=== PATIENT | female | born 1970 | race Two or more races ===

== ENCOUNTER → 2016-10-04 | Outpatient (CLI) | payer OTHER ==
--- NOTE | ~2016-10-04 | MY11 ---
[facility] A Service of [facility] & [facility] RADIOLOGY TEXT RESULTS PATIENT: ADRI IBRAHIM LOCATION: [facility] : 72 UNIT #: [id number] AGE: [address]: SP MAY APRN SEX: F ORDER DR: [id number] [facility] [address] [place], [place] [address] [id number] O MR#: [id number] Acc #: [id number] NAME: ADRI IBRAHIM : 1970 SEX: F STUDY DATE/TIME: 10/04/2016 13:26 UNIT: [facility] ROOM: STUDY DESCRIPTION: MY Mammogram Screening Dig Jerry Attending Physician: Juan Carlos May Aprn Referring Physician: Juan Carlos May Aprn Ordering Physician: Juan Carlos May Aprn Primary Care Physician: Juan Carlos May Aprn MEDICAL IMAGING REPORT This report is preliminary unless electronic signature is present EXAM Digital screening mammogram, 10/04/2016, [facility]. HISTORY 45-year-old woman no risk elevation. Annual screen. COMPARISON STUDIES Mammograms [facility] date 05/19/2015. TECHNIQUE Digital imaging of each breast was completed utilizing screening protocol. Review includes FDA-approved CAD device. FINDINGS Breast parenchyma is moderately dense with bilateral fibroglandular opacities again noted. There is no dominant mass. I see no suspicious microcalcifications and no focal architectural deformity. IMPRESSION Negative mammogram. Annual screening recommended. Patients over the age of 40 are entered into a reminder system with target due date for the next mammogram. A result letter will also be sent to the patient. BIRADS: 1 Negative Dictated by... Juno Kimbrough M.D. THIS IS AN ELECTRONICALLY VERIFIED REPORT [facility] A Service of [facility] & [facility] RADIOLOGY TEXT RESULTS PATIENT: ADRI IBRAHIM LOCATION: [facility] : 72 UNIT #: [id number] AGE: [address]: SP MAY APRN SEX: F ORDER DR: Juno Kimbrough M.D. at 10/05/2016 8:07 AM LEXI/garry TD: 10/04/2016 17:06 JOB #: [id number] MEDICAL IMAGING REPORT Page 1 of 1 COPY
== END | disposition home or self-care (01) ==
LOC: CWCC 13:00
DX: Z12.31 Encounter for screening mammogram for malignant neoplasm of breast (principal)
CPT/HCPCS: G0202